=== PATIENT | male | born 1930 | race Caucasian/White ===

== ENCOUNTER 2017-11-27 21:52 | Emergency (ER) | payer OTHER ==
[~2017-11-27] VITALS: Ht 172.7 cm; Wt 91.6 kg
[~2017-11-27 21:52] MED LIST: GLUCOPHAGE500 MG PO; LOPRESSOR100 M1 PO; LOW DOSE ASPIRI81 M1 PO; MICROZIDE12.5 M1 PO; PRILOSEC40 MG PO; SYNTHROID25 MCG PO; TYLENOL EXTRA500 MG PO; ZESTRIL40 MG PO; ZOCOR40 MG PO
[2017-11-28 01:24] VITALS: BP 152/86
== END 2017-11-28 01:24 | disposition home or self-care (01) ==
LOC: EME 21:52
PROC: 3E0234Z Introduction of Serum, Toxoid and Vaccine into Muscle, Percutaneous Approach (ICD-10-PCS; 2017-11-27)
PROC: 0HQ1XZZ Repair Face Skin, External Approach (ICD-10-PCS; principal; 2017-11-28)
DX: S01.111A Laceration without foreign body of right eyelid and periocular area, initial encounter (principal); S40.211A Abrasion of right shoulder, initial encounter; W01.198A Fall on same level from slipping, tripping and stumbling with subsequent striking against other object, initial encounter; Y93.89 Activity, other specified; Z23 Encounter for immunization; I10 Essential (primary) hypertension; I25.10 Atherosclerotic heart disease of native coronary artery without angina pectoris; E78.5 Hyperlipidemia, unspecified; E11.9 Type 2 diabetes mellitus without complications; Z79.84 Long term (current) use of oral hypoglycemic drugs; I25.2 Old myocardial infarction; Z79.82 Long term (current) use of aspirin; Z85.9 Personal history of malignant neoplasm, unspecified; Z87.19 Personal history of other diseases of the digestive system; Z88.2 Allergy status to sulfonamides
CPT/HCPCS: 70450; 70486; 73030; 99281; 99284